=== PATIENT | male | born 1990 | race Two or more races ===

== ENCOUNTER 2016-06-05 02:06 | Emergency (ER) | payer SELFPAY ==
[~2016-06-05] VITALS: Ht 167.6 cm; Wt 80.7 kg
--- NOTE | 2016-06-05 02:06 | NUR ---
PT BIB [facility] WITH A C/O HEAD TRAUMA DUE TO PISTOL WHIPPING. PT HAS RT EYE EDEMA AND WOUND. BLOODY FACE. LAC ON TOP OF HEAD. PT APPEARS ALTERED. PT TAKEN TO ROOM % AND CONNECTED TO THE MONITOR AND CONTINUOUS PULSE OX.
--- NOTE | 2016-06-05 02:06 | NUR ---
PT EVALUATED BY DR. ANSARI IN THE [facility]. PT HAS RT EYE EDEMA. DR. ANSARI INSPECTED THE EYE. PUPIL IS BLOWN/ NON REACTIVE.
[2016-06-05] MEDS ORDERED: PHENYLEPHRINE 0.5% NASAL SPRAY 15 ML BOTTLE NS ONE (02:13)
--- NOTE | 2016-06-05 02:15 | NUR ---
pt is in ct.
--- NOTE | 2016-06-05 02:20 | NUR ---
PT RETURNED FROM CT. PT IS C/O FEELING COLD. PT REC'D BLANKETS. PT STATED: "I WANT PAIN MEDICATION WITH BENADRYL."
--- NOTE | 2016-06-05 02:29 | NUR ---
DR. ANSARI SPOKE TO DR. TEJADA AT [facility]. PT ACCEPTED. 911 TO [facility]. 911 CALLED.
[2016-06-05] MEDS ORDERED: PHENYLEPHRINE HCL NASAL SPRAY 15 ML BOTTLE NS ONE (02:30)
[2016-06-05] MEDS ORDERED: PROPOFOL 100 ML IV ONE ×2 (02:34→04:00)
[2016-06-05] MEDS ORDERED: IV SET PRIMARY PUMP SET 1 EA INFUS.SET MC ONE (02:34)
--- NOTE | 2016-06-05 02:35 | NUR ---
DR. ANSARI INTUBATING. PT INTUBATED.
--- NOTE | 2016-06-05 02:35 | NUR ---
20 ETOMIDATE, 140 SUCCS IVP
[2016-06-05 02:36] LABS: BASOPHILS # (AUTO) 0.1 /CMM (0.0-0.2); BASOPHILS % (AUTO) 0.4 % (0.0-2.0); EOSINOPHILS # (AUTO) 0.4 /CMM (0.0-0.7); EOSINOPHILS % (AUTO) 1.9 % (0.0-6.0); HEMATOCRIT 42 % (39-51); HEMOGLOBIN 13.7 g/dL (13.5-17.5); LYMPHOCYTES # (AUTO) 5.4 /CMM (0.8-4.8); LYMPHOCYTES % (AUTO) 27.7 % (20.0-44.0); MEAN CORPUSCULAR HEMOGLOBIN 26 PG (26.0-33.0); MEAN CORPUSCULAR HGB CONC 33 g/dl (31.0-36.0); MEAN CORPUSCULAR VOLUME 79 fL (80-96); MONOCYTES # (AUTO) 0.6 /CMM (0.1-1.30); MONOCYTES % (AUTO) 3.2 % (2.0-12.0); NEUTROPHILS % (AUTO) 66.8 % (43.0-81.0); PLATELET COUNT (AUTO) 275 /CMM (150-450); RDW COEFFICIENT OF VARIATION 13.6 (11.5-15.0); RED BLOOD CELL COUNT(AUTO) 5.26 MIL/uL (4.5-6.0); WHITE BLOOD COUNT (AUTO) 19.5 K/uL (4.3-11.0)
--- NOTE | 2016-06-05 02:36 | NUR ---
POSSITIVE COLOR CHANGE.
--- NOTE | 2016-06-05 02:38 | NUR ---
FOELY CATH INSERTED.
--- NOTE | 2016-06-05 02:40 | NUR ---
PROPOFOL STARTED IN LAC VIA 18G. 5MCG/ MIN
[2016-06-05 02:42] LABS: CALCIUM, SERUM 8.9 mg/dL (8.5-10.1); CARBON DIOXIDE 24 mmol/L (21-32); CHLORIDE 103 mmol/L (98-107); GLUCOSE 229 mg/dL (74-106); POTASSIUM 2.9 mmol/L (3.5-5.1); SODIUM SERUM 139 mmol/L (136-145)
--- NOTE | 2016-06-05 02:42 | NUR ---
COPIOUS BLOOD VOMITING OUT HIS MOUTH. SUCTIONING IN PROCESS BY RT
[2016-06-05 02:43] LABS: CREATININE 1.3 mg/dL (0.6-1.3); GFR 67 mL/min (>60); UREA NITROGEN, BLOOD 9 mg/dL (7-18)
[2016-06-05 02:45] VITALS: BP 135/114
[2016-06-05] MEDS: VECURONIUM 10 MG VIAL IV ONE (02:45)
--- NOTE | 2016-06-05 02:45 | NUR ---
7ML VEC IVP VIA 16G . PROPOFOL INCREASED T0 10MCG/MIN
[2016-06-05 02:48] LABS: ALANINE AMINOTRANSFERASE 26 U/L (12-78); ALBUMIN 3.5 g/dL (3.4-5.0); ALCOHOL, BLOOD < 3 mg/dL (0-0); ALKALINE PHOSPHATASE 86 U/L (46-116); ASPARTATE AMINOTRANSFERASE 15 U/L (15-37); BILIRUBIN,TOTAL 0.3 mg/dL (0.2-1.0); TOTAL PROTEIN, SERUM 7.2 g/dL (6.4-8.2)
--- NOTE | 2016-06-05 02:49 | NUR ---
DR. [facility] ON THE LINE SPEAKING TO PETRA SANTIAGO/ CHG.
--- NOTE | 2016-06-05 02:50 | NUR ---
PT INTUBATED BY WITH ETT 7.5@23CM. POSITIVE COLOR CHANGE, MIST IN ETT, BILATERAL BREATH SOUNDS. PT PLACED ON VENT SETTINGS CHARTED. AMBU BAG AT BEDSIDE. SUCTIONED A LARGE AMOUNT OF THICK BLOODY VOMIT WITH YANKAUER SUCTION OUT OF THE MOUTH. PT PLACED ON AMBU BAG FOR TRANSPORT VIA EMS, VENT DISCONTINUED
--- NOTE | 2016-06-05 02:52 | NUR ---
[facility] IS TRANSPORTING PT TO [facility].
[2016-06-05 02:56] VITALS: BP 133/76
[2016-06-05 02:57] LABS: PROTHROMBIN TIME 10.8 SECS (9.5-12.7)
[2016-06-05] MEDS ORDERED: PROPOFOL 200 MG/20 ML VIAL IV ONE ×2 (03:00→04:00)
--- NOTE | 2016-06-05 03:00 | NUR ---
PT LEFT VIA [facility]. BAGGING IN PROCESS. PETRA SANTIAGO/JACOB IS SPEAKING TO PETRA BUSH AT [facility].
[2016-06-05] MEDS ORDERED: VECURONIUM 10 MG VIAL IV ONE ×2 (04:00→08:57)
[2016-06-05] MEDS ORDERED: SUCCINYLCHOLINE CHLORIDE 20 MG/ML VIAL IV ONE (04:00)
[2016-06-05] MEDS ORDERED: ETOMIDATE 2 MG/ML VIAL IV ONE ×2 (04:00→08:57)
[2016-06-05] MEDS ORDERED: SUCCINYLCHOLINE CHLORIDE 20 MG/ML VIAL ONE (08:57)
== END 2016-06-05 03:07 ==
LOC: ER 02:08
DX: S06.300A Unspecified focal traumatic brain injury without loss of consciousness, initial encounter (principal); S01.90XA Unspecified open wound of unspecified part of head, initial encounter; R04.0 Epistaxis; Y35.021A Legal intervention involving injury by handgun, law enforcement official injured, initial encounter; Y93.39 Activity, other involving climbing, rappelling and jumping off; Y92.89 Other specified places as the place of occurrence of the external cause; Y99.8 Other external cause status; R40.4 Transient alteration of awareness
CPT/HCPCS: 36415; 70450-TC; 70486-TC; 71010-TC; 72125-TC; 80048-TC; 80076-TC; 85025-TC; 85730-TC; 86850-TC; 94002-TC; A4606; G0480; J0330; J3490; L0172; Z7610

== ENCOUNTER 2016-11-09 00:15 | Emergency (ER) | payer MEDICAID, OTHER ==
[~2016-11-09] VITALS: Ht 165.1 cm; Wt 72.6 kg
--- NOTE | 2016-11-09 00:38 | NUR ---
PT BB SELF; ON AND OFF ABD PRESSURE/ SHARP LIKE PAIN SINCE 10PM WITH NAUSEA. PT AOX4 RR EVEN AND UNLABORED. NO SOB NOTED. NAD NOTED. NO NVD AT THIS TIME. PT GOWNED AND PLACED ON MONITOR WAITING FOR MD PARK. URINE COLLECTED. CALLED LAB FOR [employer] SUPERVISOR.
--- NOTE | 2016-11-09 00:56 | NUR ---
PT TO CT.
[2016-11-09 00:57] LABS: APPEARANCE,URINE CLEAR (CLEAR); BILIRUBIN,URINE 1+ (NEGATIVE); BLOOD, URINE NEGATIVE Ery/uL (NEGATIVE); COLOR,URINE DARK YELLO (YELLOW); KETONES,URINE NEGATIVE (NEGATIVE); LEUKOCYTE ESTERASE ,URINE NEGATIVE (NEGATIVE); NITRITE, URINE NEGATIVE (NEGATIVE); PROTEIN,URINE NEGATIVE (NEGATIVE); UGLUCOSE NEGATIVE (NEGATIVE); UROBILINOGEN,URINE 0.2 EU/dL (0.2)
[2016-11-09] MEDS ORDERED: ONDANSETRON HCL/PF 4 MG/2 ML VIAL ONE (00:59)
[2016-11-09] MEDS ORDERED: MORPHINE SULFATE INJ 4 MG/ML DISP.SYRIN ONE (01:00)
[2016-11-09] MEDS ORDERED: MORPHINE SULFATE INJ 2 MG/ML DISP.SYRIN IV ONE (01:00)
[2016-11-09] MEDS ORDERED: IV NS 0.9% 1,000 ML BAG IV ONE (01:00)
[2016-11-09] MEDS ORDERED: ONDANSETRON HCL/PF 4 MG/2 ML VIAL IVP ONE (01:00)
[2016-11-09 01:03] LABS: BACTERIA,URINE None seen /HPF (None Seen); MUCUS,URINE Moderate /LPF (None Seen); RBC,URINE NONE SEEN /HPF (0-2); SQUAMOUS EPITHELIAL CELL,UR Rare /HPF (None Seen); WBC,URINE 0-2 /HPF (0-3)
[2016-11-09 01:04] LABS: BASOPHILS # (AUTO) 0.1 /CMM (0.0-0.2); BASOPHILS % (AUTO) 0.8 % (0.0-2.0); EOSINOPHILS # (AUTO) 0.2 /CMM (0.0-0.7); EOSINOPHILS % (AUTO) 2.3 % (0.0-6.0); HEMATOCRIT 39 % (39-51); HEMOGLOBIN 12.8 g/dL (13.5-17.5); LYMPHOCYTES % (AUTO) 30.4 % (20.0-44.0); MEAN CORPUSCULAR HEMOGLOBIN 24 PG (26.0-33.0); MEAN CORPUSCULAR HGB CONC 33 g/dl (31.0-36.0); MEAN CORPUSCULAR VOLUME 74 fL (80-96); MONOCYTES # (AUTO) 0.4 /CMM (0.1-1.30); MONOCYTES % (AUTO) 5.5 % (2.0-12.0); PLATELET COUNT (AUTO) 179 /CMM (150-450); RDW COEFFICIENT OF VARIATION 17.3 (11.5-15.0); RED BLOOD CELL COUNT(AUTO) 5.32 MIL/uL (4.5-6.0); WHITE BLOOD COUNT (AUTO) 6.6 K/uL (4.3-11.0)
--- NOTE | 2016-11-09 01:08 | NUR ---
PT RETURNED FROM CT.
[2016-11-09 01:17] LABS: CALCIUM, SERUM 9.3 mg/dL (8.5-10.1); POTASSIUM 3.4 mmol/L (3.5-5.1)
[2016-11-09 01:22] LABS: ALBUMIN 4.1 g/dL (3.4-5.0); BILIRUBIN,DIRECT 0.1 mg/dL (0.0-0.2); BILIRUBIN,TOTAL 0.5 mg/dL (0.2-1.0); TOTAL PROTEIN, SERUM 8.5 g/dL (6.4-8.2)
[2016-11-09 02:25] VITALS: BP 111/62
--- NOTE | 2016-11-09 02:26 | NUR ---
IV removed. Catheter intact and site benign. Pressure and 4x4 applied to site. No bleeding noted.Patient discharged to home in stable condition. Written and verbal after care instructions given. Patient verbalizes understanding of instruction. Pt ambulatory with a steady gait. VSS, NAD noted on DC. Denies complaint on DC. Pt states will follow up with PCP for MRI.
== END 2016-11-09 02:29 | disposition home or self-care (01) ==
LOC: ER 00:20
DX: R10.9 Unspecified abdominal pain (principal); K50.90 Crohn's disease, unspecified, without complications
CPT/HCPCS: 36415; 74176; 80048; 80076; 81001; 83690; 85025; 96361; 96374; 96375; 99285; A4606; J2270; J2405; J7030 ×2; Z7610; 71250-TC; 81000-TC